=== PATIENT | male | born 1965 | race Caucasian/White ===

== ENCOUNTER 2016-10-08 11:01 | Outpatient (CLI) | payer OTHER, BC ==
--- NOTE | 2016-10-08 18:33 | MRI Report ---
EXAM: MRI LUMBAR SPINE WITHOUT CONTRAST EXAM DATE: 10/08/2016 11:45 AM. CLINICAL HISTORY: HX OF ACUTE ON CHRONIC LBP WITH L FACET DROP. COMPARISON: MRI lumbar spine 03/16/2012 TECHNIQUE: Multiplanar, multisequence T1-weighted and fluid-sensitive sequences of the lumbar spine f rom T12 to S1 without contrast. Other: None. FINDINGS: Spinal Cord: The conus terminates at L1-2. No signal abnormality in the visualized spinal cord. Alignment: Straightening of the normal lumbar lordosis. No significant anterolisthesis or retrolisthe sis. Bone Marrow: Five [id number] lumbar vertebral bodies are assumed. No gross fractures. T1 and T2 hyperintense lesions within L3, L2, L4 bodies likely represent benign hemangiomata. The bone marrow i s mildly diffusely heterogeneous, likely representing fatty replacement of the marrow. Modic type I d egenerative endplate changes at L4-L5 with endplate edema. Disk Levels/Facets: T12-L1: Unremarkable. L1-L2: Mild diffuse disk bulge. Mild anterior dural compression. No significant central canal or teddy roforaminal narrowing. L2-L3: Moderate diffuse disk bulge. This is slightly progressed since the prior study. Tnug-jp-vgdnd ate bilateral facet arthropathy. Mild central canal narrowing. Moderate bilateral neuroforaminal narr owing. The central canal and neuroforaminal narrowing have progressed since the prior study. L3-L4: Moderate disk height loss and desiccation. Moderate diffuse disk bulge with superimposed cent ral protrusion protruding approximately 5 mm. This has progressed since the prior study. Moderate to severe bilateral facet arthropathy. Moderate central canal narrowing. Moderate to severe right and mi ld to moderate left neuroforaminal narrowing. The central canal and neuroforaminal narrowing have pro gressed since the prior study. L4-L5: Moderate disk height loss and desiccation. Moderate diffuse disk bulge and moderate to severe bilateral facet arthropathy. Mild central canal narrowing. Severe left and moderate to severe right neuroforaminal narrowing. This level has slightly progressed since the prior study. L5-S1: Moderate to severe bilateral facet arthropathy. No significant central canal narrowing. No ne uroforaminal narrowing. This level is similar to prior study. Musculature: Normal. No edema or fatty atrophy. Other: The visualized pelvic cavity is unremarkable. IMPRESSION: 1. Moderate to severe multilevel degenerative spondylosis, as detailed above and summarized below. Th is is progressed at several levels, as detailed above when compared to the prior study from 2. 2. Straightening of the normal lumbar lordosis. No significant anterolisthesis or retrolisthesis. 3. Modic type I degenerative endplate changes at L4-L5 with endplate edema. This may represent a sour ce of pain. 4. L2-3 level demonstrates mild central canal narrowing. Moderate bilateral neuroforaminal narrowing. The central canal and neuroforaminal narrowing have progressed since the prior study. 5. L3-L4 level demonstrates a moderate diffuse disk bulge with superimposed central protrusion protru ding approximately 5 mm. This has progressed since the prior study. Moderate to severe bilateral face t arthropathy. Moderate central canal narrowing. Moderate to severe right and mild to moderate left n euroforaminal narrowing. The central canal and neuroforaminal narrowing have progressed since the ant or study. 6. L4-L5 level demonstrates mild central canal narrowing. Severe left and moderate to severe right ne uroforaminal narrowing. This level has slightly progressed since the prior study. Comment: The following findings are so common in adults without low back pain that while we report th eir presence, they must be interpreted with caution and in the context of the clinical situation. (Re kenneth Larsen et al, Spine 2001) Prevalence of findings in patients without low back pain: Disk degeneration (any evidence): 92% Disk desiccation/T2 signal loss: 83% Disk height loss: 56% Disk bulge: 64% Disk protrusion: 32% Annular tear/high intensity zone: 38% [facility] Referring Provider Line: [phone] SITE ID: [id number]
== END 2016-10-08 11:02 | disposition home or self-care (01) ==
LOC: DI 11:01
PROVIDERS: ATTEND Family Medicine
DX: M51.26 Other intervertebral disc displacement, lumbar region (principal); M47.896 Other spondylosis, lumbar region; M51.36 Other intervertebral disc degeneration, lumbar region; M47.897 Other spondylosis, lumbosacral region
CPT/HCPCS: 72148

== ENCOUNTER 2016-11-25 14:57 | Outpatient (CLI) | payer BC ==
[2016-11-25 19:34] LABS: BASOPHILS % (AUTO) 0.6 %; EOSINOPHILS # (AUTO) 0.1 10^3/uL (0.0-0.7); EOSINOPHILS % (AUTO) 1.1 %; HCT - HEMATOCRIT 43.4 % (42.0-52.0); LYMPHOCYTES # (AUTO) 1.1 10^3/uL (1.5-3.5); LYMPHOCYTES % (AUTO) 16.1 %; MEAN CORPUSCULAR HEMOGLOBIN 32.4 pg (27.0-31.0); MEAN CORPUSCULAR HGB CONC 34.5 g/dL (32.0-36.0); MEAN CORPUSCULAR VOLUME 93.9 fL (80.0-94.0); MEAN PLATELET VOLUME 7.4 fL (7.4-11.4); MONOCYTES # (AUTO) 0.3 10^3/uL (0.0-1.0); MONOCYTES % (AUTO) 5.1 %; NEUTROPHILS # (AUTO) 5.2 10^3/uL (1.5-6.6); NEUTROPHILS % (AUTO) 77.1 %; RED BLOOD COUNT 4.62 10^6/uL (4.70-6.10); RED CELL DISTRIBUTION WIDTH 13.2 % (12.0-15.0); UNCORRECTED WHITE BLOOD COUNT 6.7 x10^3/uL; WHITE BLOOD COUNT 6.7 x10^3/uL (4.8-10.8)
== END 2016-11-25 14:58 | disposition home or self-care (01) ==
LOC: LAB.F 14:57
PROVIDERS: ATTEND Physician Assistant
DX: I25.10 Atherosclerotic heart disease of native coronary artery without angina pectoris (principal)
CPT/HCPCS: 36415; 85025

== ENCOUNTER 2016-12-30 07:20 | Outpatient (CLI) | payer BC ==
[2016-12-30 13:17] LABS: CHOL/HDL RATIO 5.7 (<5.0); CHOLESTEROL 243 mg/dL; HDL CHOLESTEROL 43 mg/dL; LDL/HDL RATIO 4.2 (<3.6); TRIGLYCERIDES 107 mg/dL; VLDL CHOLESTEROL 21 mg/dL
== END 2016-12-30 07:21 | disposition home or self-care (01) ==
LOC: LAB.F 07:20
PROVIDERS: ATTEND Internal Medicine Cardiovascular Disease
DX: E78.5 Hyperlipidemia, unspecified (principal)
CPT/HCPCS: 36415; 80061

== ENCOUNTER 2017-10-02 19:25 | Outpatient (CLI) | payer BC | END 2017-10-02 19:26 | disposition short-term general hospital (02) | LOC: EMS 19:25 | PROVIDERS: ATTEND Surgery | DX: R07.9 Chest pain, unspecified (principal); R11.0 Nausea; R61 Generalized hyperhidrosis | CPT/HCPCS: A0425; A0427 ==

== ENCOUNTER 2017-12-01 07:11 | Outpatient (CLI) | payer BC ==
[2017-12-01 12:09] LABS: CHOL/HDL RATIO 2.4 (<5.0); CHOLESTEROL 110 mg/dL; HDL CHOLESTEROL 45 mg/dL; LDL CHOLESTEROL,CALCULATED 52 mg/dL; LDL/HDL RATIO 1.2 (<3.6); VLDL CHOLESTEROL 13 mg/dL
== END 2017-12-01 07:12 | disposition home or self-care (01) ==
LOC: LAB.F 07:11
PROVIDERS: ATTEND Internal Medicine Cardiovascular Disease
DX: E78.5 Hyperlipidemia, unspecified (principal)
CPT/HCPCS: 36415; 80061; 83721

== ENCOUNTER 2018-02-19 07:52 | Outpatient (CLI) | payer BC ==
[2018-02-19 12:20] LABS: CHOL/HDL RATIO 2.3 (<5.0); CHOLESTEROL 111 mg/dL; HDL CHOLESTEROL 48 mg/dL; LDL CHOLESTEROL,CALCULATED 43 mg/dL; LDL/HDL RATIO 0.9 (<3.6); VLDL CHOLESTEROL 20 mg/dL
== END 2018-02-19 07:53 | disposition home or self-care (01) ==
LOC: LAB.F 07:52
PROVIDERS: ATTEND Internal Medicine Cardiovascular Disease
DX: E78.5 Hyperlipidemia, unspecified (principal)
CPT/HCPCS: 36415; 80061; 83721

== ENCOUNTER 2018-03-30 08:24 | Outpatient (CLI) | payer BC ==
[2018-03-30 18:05] LABS: HGB - HEMOGLOBIN 14.3 g/dL (14.0-18.0); MEAN CORPUSCULAR HEMOGLOBIN 32.2 pg (27.0-31.0); MEAN CORPUSCULAR HGB CONC 33.3 g/dL (32.0-36.0); MEAN CORPUSCULAR VOLUME 96.5 fL (80.0-94.0); MEAN PLATELET VOLUME 7.1 fL (7.4-11.4); RED BLOOD COUNT 4.44 10^6/uL (4.70-6.10); RED CELL DISTRIBUTION WIDTH 13.8 % (12.0-15.0); WHITE BLOOD COUNT 4.4 x10^3/uL (4.8-10.8)
== END 2018-03-30 08:25 | disposition home or self-care (01) ==
LOC: LAB.F 08:24
PROVIDERS: ATTEND Nurse Practitioner
DX: Z95.5 Presence of coronary angioplasty implant and graft (principal)
CPT/HCPCS: 36415; 85027

== ENCOUNTER 2018-08-03 07:59 | Outpatient (CLI) | payer BC ==
[2018-08-03 10:41] LABS: CHOL/HDL RATIO 2.3 (<5.0); CHOLESTEROL 107 mg/dL; HDL CHOLESTEROL 47 mg/dL; LDL CHOLESTEROL,CALCULATED 47 mg/dL; VLDL CHOLESTEROL 13 mg/dL
== END 2018-08-03 08:00 | disposition home or self-care (01) ==
LOC: LAB.F 07:59
PROVIDERS: ATTEND Internal Medicine Cardiovascular Disease
DX: I25.10 Atherosclerotic heart disease of native coronary artery without angina pectoris (principal)
CPT/HCPCS: 36415; 80061; 83721

== ENCOUNTER 2020-05-20 10:46 | Outpatient (CLI) | payer BC ==
--- OUTSIDE RECORDS SUMMARY | 2020-05-27 01:12 | EXTERNAL MEDICAL SUMMARY RPT | Continuity of Care Document ---
:1965 Demographics Phone Unavailable Preferred Language Unknown Marital Status Unknown Congregational Affiliation Unknown Race Unknown Ethnic Group Unknown Author Organization [place] Address [address] [phone] Phone Support Name Relationship Address Phone [facility] Unavailable Unavailable Unavailable Problems date description facility 2020-05-20 11:45 ST elevation (STEMI) myocardial [facility] infarction of unspecified site 2020-05-20 11:45 Headache, unspecified [facility] 2020-05-20 11:45 Syncope and collapse [facility] Allergies date description facility NO KNOWN ALLERGIES [facility] Social History date description facility [id number]
== END 2020-05-20 10:47 | disposition short-term general hospital (02) ==
LOC: EMS 10:46
PROVIDERS: ATTEND Surgery
DX: R51.9 Headache, unspecified (principal); R10.9 Unspecified abdominal pain
CPT/HCPCS: A0425; A0427

== ENCOUNTER 2022-06-25 18:42 | Emergency (ER) | payer OTHER ==
[2022-06-25 19:39] VITALS: BP 112/77
[2022-06-25] MEDS ORDERED: BUFFERED LIDOCAINE 10 ML SYRINGE SUBQ STA (19:44)
[2022-06-25] MEDS ORDERED: BACITRACIN ZINC OINT 1 PACKET TOP STA (20:24)
[2022-06-25] MEDS ORDERED: cephALEXin 250 MG CAPSULE PO STA (20:24)
--- NOTE | 2022-06-25 20:27 | ED Physician Documentation ---
PD HPI UPPER EXT INJURY - Stated complaint Stated Complaint: R POINTER FINGER LAC - Chief complaint Chief Complaint: Laceration - History obtained from History obtained from: Patient - History of Present Illness Location: Right, Finger (index finger) Pain level max: 4 Pain level now: 3 - Additonal information Additional information: Patient is a 57-year-old male who presents to the emergency department with an injury to the right index finger. He was using a grinding wheel today when it accidentally cut the dorsum of the right index finger. He has tried to control the bleeding for the past 2 hours. Nothing makes it better or worse. Tetanus is up-to-date Patient is right-handed. PD PAST MEDICAL HISTORY - Past Medical History Past Medical History: Yes Cardiovascular: Hypertension, High cholesterol, Coronary artery disease, [place] Respiratory: None Neuro: None Endocrine/Autoimmune: None GI: None : None HEENT: None Psych: None Musculoskeletal: Chronic back pain Derm: None - Past Surgical History Past Surgical History: Yes General: Other Cardiovascular: Coronary stent - Present Medications Home Medications: Ambulatory Orders Medication Instructions Recorded Confirmed ALPRAZolam [Alprazolam] 0.5 mg ORAL TID PRN 06/25/22 06/25/22 Alirocumab [Praluent Pen] 75 mg SQ Q14D 06/25/22 06/25/22 Aspirin EC [Ecotrin] 81 mg PO DAILY 06/25/22 06/25/22 DULoxetine [Cymbalta] 30 mg PO BID 06/25/22 06/25/22 Gabapentin [Neurontin] 300 mg PO BID 06/25/22 06/25/22 Lisinopril [Zestril] 10 mg PO DAILY 06/25/22 06/25/22 carvediloL [Coreg] 12.5 mg PO BID 06/25/22 06/25/22 cephALEXin [Keflex] 500 mg PO Q6H #28 cap 06/25/22 - Allergies Allergies/Adverse Reactions: Allergies Allergy/AdvReac Type Severity Reaction Status Date / Time Sulfa (Sulfonamide Allergy Severe Anaphylaxis Verified 06/25/22 18:55 Antibiotics) - Social History Does the pt smoke?: No Smoking Status: Never smoker Does the pt drink ETOH?: No Does the pt have substance abuse?: No - Immunizations Immunizations are current?: No Immunizations: Other immun not current PD ED PE NORMAL - Vitals Vital signs reviewed: Yes - General General: Alert and oriented X 3 - HEENT HEENT: Moist mucous membranes - Derm Derm: Warm and dry - Extremities Extremities: Other (2 cm laceration over the right PIP joint, dorsum. Neurovascular intact.) - Neuro Neuro: Alert and oriented X 3 Results - Vitals Vitals: Vital Signs - 24 hr 06/25/22 06/25/22 18:47 19:39 Temperature 36.8 C Heart Rate 84 66 Respiratory 20 19 Rate Blood Pressure 146/79 H 112/77 O2 Saturation 95 96 Oxygen O2 Source Room air Procedures - Laceration (location) Right index finger Length in cm: 2 Wound type: Curved, Into subcut fat, Clean Neurovascular status: Sensory intact, Motor intact, Vascular intact Tendon involvement: Tendon intact, Other (No tendon injury. Tested against resistance) Anesthesia: Lidocaine 1%, With bicarb Wound preparation: Irrigated copiously NS, Wound explored, To the base Skin layer closure: Nylon, Interrupted, Size #-0 - enter number (4) Other: Patient tolerated well, No complications, Neurovascular intact, Dressing applied, Tetanus UTD PD Medical Decision Making - ED course Complexity details: considered differential, d/w patient ED course: Laceration repaired. Tolerated well. Neurovascular intact. Tetanus up-to-date. Placed in the splint to help immobilize the joint while this heals. We will place on Keflex as it was a dirty grinding wheel. Warnings of infection and instructions on wound care given at bedside. Patient counseled regarding signs and symptoms for which I believe and urgent re-evaluation would be necessary. Patient with good understanding of and agreement to plan and is comfortable going home at this time This document was made in part using voice recognition software. While efforts are made to proofread this document, sound alike and grammatical errors may occur. Departure - Departure Disposition: 01 Home, Self Care Clinical Impression: Finger laceration Qualifiers: Encounter type: initial encounter Finger: index finger Damage to nail status: without damage Foreign body presence: without foreign body Laterality: right Qualified Code(s): S61.210A - Laceration without foreign body of right index finger without damage to nail, initial encounter Condition: Good Instructions: ED Laceration Ext Sutr Stap Tape Follow-Up: [facility] [place] [Provider Group] Prescriptions: cephALEXin [Keflex] 500 mg PO Q6H #28 cap Comments: Your prescription was sent to [facility] in [place]. Please take all antibiotics until gone. Keep the wound clean. Wear the splint for the next 1 to 2 days. Return for redness, swelling or drainage from the wound. The sutures should be removed in approximately 10 to 14 days. This can be done either here, with your primary care provider or at the walk-in clinic in [place]. Discharge Date/Time: 06/25/22 20:37
== END 2022-06-25 20:37 | disposition home or self-care (01) ==
LOC: ED 18:42
DX: S61.210A Laceration without foreign body of right index finger without damage to nail, initial encounter (principal); W29.8XXA Contact with other powered hand tools and household machinery, initial encounter
CPT/HCPCS: 12001; 99282; A9270

== ENCOUNTER 2022-10-18 18:30 | Emergency (ER) | payer OTHER ==
[2022-10-18] MEDS ORDERED: oxyCODONE 5 MG TABLET PO STA (19:11)
--- NOTE | 2022-10-18 19:17 | ED Physician Documentation ---
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 Complains of a 7 out of 10 headache. No loss of consciousness. No vomiting. Has upper neck and back pain as well. No numbness or tingling. Tetanus shot is up-to-date. Has a laceration on the top of his head. Not on blood thinners. Nothing makes it better or worse. No seizure activity. No altered mental status. Review of Systems Constitutional: denies: Fever, Chills GI: denies: Vomiting, Diarrhea Skin: denies: Rash Musculoskeletal: denies: Back pain Neurologic: denies: Focal weakness, Numbness, Seizure, Confused, LOC PD PAST MEDICAL HISTORY - Past Medical History Past Medical History: Yes Cardiovascular: Hypertension, High cholesterol, Coronary artery disease, [place] Respiratory: None Neuro: None Endocrine/Autoimmune: None GI: None : None HEENT: None Psych: None Musculoskeletal: Chronic back pain Derm: None - Past Surgical History Past Surgical History: Yes General: Other Cardiovascular: Coronary stent - Present Medications Home Medications: Ambulatory Orders Medication Instructions Recorded Confirmed ALPRAZolam [Alprazolam] 0.5 mg ORAL TID PRN 06/25/22 06/25/22 Alirocumab [Praluent Pen] 75 mg SQ Q14D 06/25/22 06/25/22 Aspirin EC [Ecotrin] 81 mg PO DAILY 06/25/22 06/25/22 DULoxetine [Cymbalta] 30 mg PO BID 06/25/22 06/25/22 Gabapentin [Neurontin] 300 mg PO BID 06/25/22 06/25/22 Lisinopril [Zestril] 10 mg PO DAILY 06/25/22 06/25/22 carvediloL [Coreg] 12.5 mg PO BID 06/25/22 06/25/22 cephALEXin [Keflex] 500 mg PO Q6H #28 cap 06/25/22 - Allergies Allergies/Adverse Reactions: Allergies Allergy/AdvReac Type Severity Reaction Status Date / Time Sulfa (Sulfonamide Allergy Severe Anaphylaxis Verified 06/25/22 18:55 Antibiotics) - Social History Does the pt smoke?: No Smoking Status: Never smoker Does the pt drink ETOH?: No Does the pt have substance abuse?: No - Immunizations Immunizations are current?: No Immunizations: Other immun not current PD ED PE NORMAL - Vitals Vital signs reviewed: Yes - General General: Alert and oriented X 3, No acute distress - HEENT HEENT: PERRL, EOMI, Ears normal, Moist mucous membranes, Pharynx benign, Other (2 cm laceration to the crown of the head. Mild hematoma. No palpable skull fractures.) - Neck Neck: Other (Mild upper C-spine tenderness palpation. No step-off or deformity.) - Cardiac Cardiac: RRR, Strong equal pulses - Respiratory Respiratory: No respiratory distress, Clear bilaterally - Abdomen Abdomen: Soft, Non tender, Non distended - Back Back: No spinal TTP - Derm Derm: Warm and dry - Extremities Extremities: Normal ROM s pain - Neuro Neuro: Alert and oriented X 3, advertising director 2-12 intact, No motor deficit, No sensory deficit, Normal speech Eye Opening: Spontaneous Motor: Obeys Commands Verbal: Oriented GCS Score: 15 - Psych Psych: Normal mood, Normal affect Results - Vitals Vitals: Vital Signs - 24 hr 10/18/22 10/18/22 18:32 20:18 Temperature 36.5 C Heart Rate 70 70 Respiratory 16 19 Rate Blood Pressure 166/112 H 173/11 H O2 Saturation 97 100 Oxygen O2 Source Room air - Rads (name of study) CT head Relevant Findings:: Final report received, See rad report CT cervical spine Relevant Findings:: Final report received, See rad report Procedures - Laceration (location) Scalp Length in cm: 2 Wound type: Linear, Superficial Neurovascular status: Sensory intact, Motor intact, Vascular intact Wound preparation: Irrigated copiously NS, Wound explored, To the base Skin layer closure: [place] (2) Other: Patient tolerated well, No complications, Neurovascular intact, Tetanus UTD PD Medical Decision Making - ED course Complexity details: reviewed results, re-evaluated patient, considered differential, d/w patient, d/w family ED course: Patient was given a dose of oxycodone for the headache which helped. Head CT and cervical spine CT do not show any acute abnormalities. There is a possible small thyroid nodule that can be followed up as an outpatient. He will follow- up with his doctor for staple removal as well. Patient is well-appearing, nontoxic. Afebrile. No evidence of cervical spine fracture. No focal neurological deficits. Scalp laceration repaired with yamileth after wound cleaning. Patient counseled regarding signs and symptoms for which I believe and urgent re-evaluation would be necessary. Patient with good understanding of and agreement to plan and is comfortable going home at this time This document was made in part using voice recognition software. While efforts are made to proofread this document, sound alike and grammatical errors may occur. Departure - Departure Disposition: 01 Home, Self Care Clinical Impression: Closed head injury Qualifiers: Encounter type: initial encounter Qualified Code(s): S09.90XA - Unspecified injury of head, initial encounter Scalp laceration Qualifiers: Encounter type: initial encounter Qualified Code(s): S01.01XA - Laceration without foreign body of scalp, initial encounter Condition: Good Instructions: ED Head Injury Closed, ED Laceration Scalp Stitch Or Stap Follow-Up: Mayda Cantu MD [Primary Care Provider] - Comments: The yamileth should be removed in about 7 to 10 days with your doctor. Please return if you worsen. Your head CT and cervical spine CT do not show any acute abnormalities today. Return if you notice redness, swelling or drainage from the wound. Discharge Date/Time: 10/18/22 20:22
--- NOTE | 2022-10-18 19:43 | CT Report ---
PROCEDURE: HEAD WO INDICATIONS: head injury TECHNIQUE: Noncontrast 4.5 mm thick angled axial sections acquired from the foramen magnum to the vertex. For r adiation dose reduction, the following was used: automated exposure control, adjustment of mA and/or kV according to patient size. COMPARISON: Correlation is made with the accompanying cervical spine CT, 10/18/2022. FINDINGS: Image quality: Excellent. CSF spaces: Basal cisterns are patent. No extra-axial fluid collections. Ventricles are normal in size and shape. Brain: No midline shift. No intracranial masses or hemorrhage. Wilcox-white matter interface is norm al. Skull and face: There is a left superior scalp laceration and hematoma seen, with staple repair. No associated calvarial fracture is seen. Calvarium and visualized facial bones are intact, without susp icious lesions. Sinuses: Visualized sinuses and mastoids are clear. IMPRESSION: Left superior scalp hematoma and laceration seen, with staple repair. No associated chondral fracture can be seen. No intracranial hemorrhage is seen. No significant intracranial abnormality is seen. Reviewed by: Jaden Martinez MD on 10/18/2022 6:41 PM RYANNE Approved by: Jaden Martinez MD on 10/18/2022 6:41 PM RYANNE Station ID: [id number]
[2022-10-18 20:22] VITALS: BP 173/11
--- NOTE | 2022-10-18 20:28 | CT Report ---
PROCEDURE: CERVICAL SPINE WO INDICATIONS: neck pain TECHNIQUE: Noncontrast 3 mm thick sections acquired from the skull base to the T4 level. Sagittal and coronal r eformats were then constructed. For radiation dose reduction, the following was used: automated exp osure control, adjustment of mA and/or kV according to patient size. COMPARISON: None. FINDINGS: Image quality: Excellent. Bones: No fractures or subluxation. There is straightening of the cervical lordosis. Minimal anterol isthesis demonstrated at C2-C3, C3-C4, and C4-C5. There is multilevel degenerative disc disease and f acet arthropathy. Visualized superior ribs are intact. Soft tissues: Prevertebral soft tissues are normal in thickness. No paravertebral hematomas. No ap ical pneumothoraces. There is a soft tissue nodule measuring 2.4 x 1.8 cm on the posterior inferior aspect of the right thyroid lobe. IMPRESSION: 1. No acute fracture or subluxation. 2. Soft tissue nodule along the posterior inferior aspect of the right thyroid lobe may represent an exophytic thyroid nodule, a parathyroid adenoma, or a lymph node. Consider further evaluation with no nemergent thyroid ultrasound or follow-up chest CT. Reviewed by: Fransisco Shaw MD on 10/18/2022 8:27 PM PDT Approved by: Fransisco Shaw MD on 10/18/2022 8:27 PM PDT Station ID: [id number]
== END 2022-10-18 20:22 | disposition home or self-care (01) ==
LOC: ED 18:30
DX: S09.90XA Unspecified injury of head, initial encounter (principal); S01.01XA Laceration without foreign body of scalp, initial encounter; W22.8XXA Striking against or struck by other objects, initial encounter; Y93.89 Activity, other specified; I10 Essential (primary) hypertension; E78.00 Pure hypercholesterolemia, unspecified; I25.10 Atherosclerotic heart disease of native coronary artery without angina pectoris; I25.2 Old myocardial infarction; Z79.82 Long term (current) use of aspirin; Z79.899 Other long term (current) drug therapy
CPT/HCPCS: 12001; 70450; 72125; 99283; 99284; A9270

== ENCOUNTER 2022-11-04 17:20 | Outpatient (CLI) | payer OTHER ==
--- NOTE | 2022-11-04 23:10 | Ultrasound Report ---
PROCEDURE: Head or Neck Soft Tissue INDICATIONS: HYPERPARATHYRODIISM TECHNIQUE: Real-time scanning was performed of the thyroid gland, with image documentation. COMPARISON: Correlation is made to CT, 10/18/2022. FINDINGS: Right: Thyroid lobe measures 4.2 x 1.2 x 2.3 cm, and is homogeneous in echotexture. Left: Thyroid lobe measures 5.2 x 1.6 x 2.2 cm, and is homogenous in echotexture. Isthmus: 4-5 mm thick. Nodule number: 1 Location: Left mid thyroid Size: 0.6 x 0.5 x 0.6 cm. Composition: Predominantly solid. Echogenicity: Hypoechoic. Shape: wider than tall. Margins: Smooth. Echogenic foci: None (0 points). Total points: 4 ACR TI-RADS category: 4. 2 masses are seen inferior to the right thyroid posteriorly that measure 2.2 x 2.1 x 2.2 cm and 2.1 x 0.7 x 1.6 cm. IMPRESSION: 2 masses are seen posterior to the anterior aspect of the right thyroid, which are suspi cious for parathyroid adenomas, particularly given the patient history. Please consider a follow-up nuclear medicine parathyroid scan versus a dedicated multiphase CT perfor med without and with IV contrast, if either of these studies would be helpful for clinical management decision making. There is a 6 mm left thyroid nodule. By published criteria, no specific imaging follow-up is recommen ded. Reviewed by: Jaden Martinez MD on 11/04/2022 10:09 PM RYANNE Approved by: Jaden Martinez MD on 11/04/2022 10:09 PM RYANNE Station ID: [id number]
== END 2022-11-04 17:21 | disposition home or self-care (01) ==
LOC: DI 17:20
PROVIDERS: ATTEND Otolaryngology
DX: E21.3 Hyperparathyroidism, unspecified (principal); E04.2 Nontoxic multinodular goiter

== ENCOUNTER 2023-01-05 10:36 | Outpatient (CLI) | payer OTHER ==
[2023-01-05 14:48] LABS: CALCIUM 11.2 mg/dL (8.5-10.3); CREATININE 0.8 mg/dL (0.6-1.3); POTASSIUM 4.4 mmol/L (3.5-4.5)
== END 2023-01-05 10:37 | disposition home or self-care (01) ==
LOC: LAB.S 10:36
PROVIDERS: ATTEND Physician Assistant
DX: I10 Essential (primary) hypertension (principal)
CPT/HCPCS: 36415; 80048

== ENCOUNTER 2023-10-19 13:38 | Outpatient (CLI) | payer OTHER ==
--- NOTE | 2023-10-20 08:51 | Ultrasound Report ---
PROCEDURE: Arterial Duplex Upr Ext RT INDICATIONS: PULSATILE MASS TECHNIQUE: Color and pulse Doppler interrogation was performed of right upper extremity arterial systems, with i mage documentation. COMPARISON: None. FINDINGS: Subclavian artery (mid): 142 cm/sec, with triphasic flow. Axillary artery: 80 cm/sec, with monophasic flow. Brachial artery (mid): 88 cm/sec, with triphasic flow. Radial artery (proximal): 94 cm/sec, with monophasic flow. Radial artery (mid): 82 cm/sec, with monophasic flow. Radial artery (distal): 85 cm/sec, with monophasic flow. Ulnar artery (proximal): 63 cm/sec, with monophasic flow. Ulnar artery (mid): 32 cm/sec, with monophasic flow. Ulnar artery (distal): 35 cm/sec, with monophasic flow. Wilcox-scale imaging description: At the area of concern, the mid brachial artery appears tortuous and courses superficially. No aneurysms are identified. IMPRESSION: At the area of concern, the mid brachial artery appears tortuous and courses superficially. No aneury sms are seen. Reviewed by: Tomás Melendrez MD on 10/20/2023 8:50 AM PDT Approved by: Tomás Melendrez MD on 10/20/2023 8:50 AM PDT Station ID: [id number]
== END 2023-10-19 13:39 | disposition home or self-care (01) ==
LOC: DI 13:38
PROVIDERS: ATTEND Surgery Vascular Surgery
DX: R22.31 Localized swelling, mass and lump, right upper limb (principal)